=== PATIENT | female | born 1985 | race African-American/Black ===

== ENCOUNTER 2018-08-08 13:05 | Emergency (ER) | payer SELFPAY ==
[2018-08-08 13:20] VITALS: BP 145/94; PULSE 80; TEMP 98; BMI 43.0
[2018-08-08] MEDS ORDERED: KETOROLAC TROMETHAMINE 60 MG/2 ML VIAL IM ONE (13:52)
[2018-08-08] MEDS ORDERED: KETOROLAC TROMETHAMINE 60 MG/2 ML VIAL ONE (13:55)
--- NOTE | 2018-08-08 13:55 | PDOC ---
History of Present Illness - General Chief Complaint: Pain Stated Complaint: RT KNEE/FOOT PAIN Time Seen by Provider: 08/08/18 13:34 History Source: Patient - History of Present Illness Occurred: reports: last week Severity: Yes: moderate Lower Extremity Pain Location: right: foot Past History - Past Medical History Allergies/Adverse Reactions: Allergies Allergy/AdvReac Type Severity Reaction Status Date / Time No Known Allergies Allergy Verified 08/08/18 13:20 COPD: No - Suicide/Smoking/Psychosocial Hx Smoking History: Current every day smoker Number of Cigarettes Smoked Daily: 4 Information on smoking cessation initiated: No Review of Systems - Review of Systems Constitutional: No: Chills, Fever Musculoskeletal: Yes: Joint Pain. No: Joint Swelling *Physical Exam - Vital Signs Last Vital Signs Temp Pulse Resp BP Pulse Ox 98 F 80 18 145/94 99 08/08/18 13:18 08/08/18 13:18 08/08/18 13:18 08/08/18 13:18 08/08/18 13:18 - Physical Exam General Appearance: Yes: Appropriately Dressed, Mild Distress HEENT: positive: Normal Voice Neck: positive: Supple Respiratory/Chest: negative: Respiratory Distress Extremity: positive: Normal Inspection, Tender (to R heel, no erythema). negative: Swelling Integumentary: positive: Dry, Warm Neurologic: positive: Fully Oriented, Alert, Normal Mood/Affect Moderate Sedation - Procedure Monitoring Vital Signs: Procedure Monitoring Vital Signs Temperature 98 F 08/08/18 13:18 Pulse Rate 80 08/08/18 13:18 Respiratory Rate 18 08/08/18 13:18 Blood Pressure 145/94 08/08/18 13:18 O2 Sat by Pulse Oximetry (%) 99 08/08/18 13:18 ED Treatment Course - RADIOLOGY Radiology Studies Ordered: Category Date Time Status FOOT-RIGHT [RAD] Stat Radiology 08/08/18 13:52 Ordered Medical Decision Making - Medical Decision Making 08/08/18 13:52 33-year-old female, denies any past medical history, here with right foot pain. Patient states she developed mostly right heel pain week ago. Unable to describe pain but states it is constant and worse with weight bearing. Denies any trauma or obvious inciting factors. No history of similar pain. Denies swelling, redness, fever or chills. Patient also complaining of intermittent right knee pain but states that is chronic in nature and for unclear reasons, has never been evaluated for same by her PMD. Patient currently not taking anything for pain See exam R foot pain No trauma No e/o infection Possibly MSK -pain control -XR r/o heel spur 08/08/18 14:52 XR w/ minor spur, unclear if source of pain. Will give crutches and ortho referral for further eval. To take OTC meds as needed *DC/Admit/Observation/Transfer Diagnosis at time of Disposition: Foot pain, right - Discharge Dispostion Disposition: HOME Condition at time of disposition: Good - Referrals Referrals: Balwinder Benites MD [Staff Physician] - - Patient Instructions Additional Instructions: The cause of your foot and knee pain is unclear at this time, but you will need further evaluation by orthopedics. Please call Dr. Benites for follow-up appointment. Use crutches for weight bearing and take Motrin or Tylenol for pain as needed - Post Discharge Activity
== END 2018-08-08 15:07 | disposition home or self-care (01) ==
LOC: JERFT 13:05
PROC: 3E0233Z Introduction of Anti-inflammatory into Muscle, Percutaneous Approach (ICD-10-PCS; principal; 2018-08-08)
DX: M77.31 Calcaneal spur, right foot (principal); M79.671 Pain in right foot
CPT/HCPCS: 73630-TC-RT-FY; 99281-25

== ENCOUNTER 2018-11-28 23:04 | Emergency (ER) | payer OTHER ==
[2018-11-28 23:13] VITALS: BP 145/88; PULSE 92; TEMP 98.2; BMI 44.4
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
== END 2018-11-29 01:31 | disposition home or self-care (01) ==
LOC: JER 23:04
DX: M25.461 Effusion, right knee (principal); M25.522 Pain in left elbow; V49.9XXD Car occupant (driver) (passenger) injured in unspecified traffic accident, subsequent encounter; Z48.02 Encounter for removal of sutures
CPT/HCPCS: 99282-25